=== PATIENT | female | born 2000 | race Caucasian/White ===

== ENCOUNTER 2021-10-18 19:33 | Emergency (ER) | payer MEDICAID ==
[~2021-10-18] VITALS: Ht 162.6 cm; Wt 58.6 kg
[2021-10-18 19:41] VITALS: BP 112/67
[2021-10-18 19:59] LABS: CLARITY,URINE CLEAR (Clear); COLOR,URINE YELLOW (Yellow); GLUCOSE, URINE NEGATIVE (Neg); KETONES,URINE TRACE mg/dl (Neg); LEUKOCYTE ESTERASE ,URINE NEGATIVE (Neg); NITRITES, URINE NEGATIVE (Neg); OCCULT BLOOD,URINE NEGATIVE (Neg); PROTEIN,URINE NEGATIVE (Neg); URINE HCG NEGATIVE (NEG); UROBILINOGEN,URINE 0.2 E.U/dL (0.2-1.0)
[2021-10-18 20:03] LABS: UA COLLECTION TYPE CLN CATCH MIDSTREAM
== END 2021-10-18 21:29 | disposition home or self-care (01) ==
LOC: ER 19:34
DX: R30.0 Dysuria (principal)
CPT/HCPCS: 81003; 81025; 99283